=== PATIENT | male | born 1960 | race Two or more races ===

== ENCOUNTER 2016-04-16 23:32 | Emergency (ER) | payer MEDICAID ==
[~2016-04-16] VITALS: Ht 172.7 cm; Wt 72.6 kg
[~2016-04-16 23:32] MED LIST: ALBUTEROL SULF8.5 GM INH; ALBUTEROL2.5 MG/3 M HHN; ALBUTEROL2.5 MG/3 M INH; ATORVASTATIN CA10 MG ORAL; AZITHROMYCIN250 MG ORAL; IPRATROPIU0.2 MG/1 M HHN; PREDNISONE20 MG ORAL; SPIRIVA18 MCG INH; SYMBICORT 16010.2 G1 IH
[2016-04-16 23:50] VITALS: BP 122/64
[2016-04-17] MEDS ORDERED: PredniSONE 20mg tab ORAL ONE
[2016-04-17] MEDS ORDERED: Ipratropium 0.02% Inh Soln 2.5ml UD HHN ONE
[2016-04-17] MEDS ORDERED: Albuterol ud Inhalation HHN ONE ×2 (01:00)
[2016-04-17] MEDS ORDERED: AZITHROMYCIN250 MG ORAL (01:05)
[2016-04-17] MEDS ORDERED: DUONEB 0.5-3(2.53 ML HHN (01:05)
[2016-04-17] MEDS ORDERED: PREDNISONE20 MG ORAL (01:05)
[2016-04-17] MEDS ORDERED: ALBUTEROL SULF8.5 GM INH (01:05)
--- NOTE | 2016-04-17 01:06 | Emergency Room Report ---
History of Present Illness General Chief Complaint: Dyspnea/Respdistress Source: Patient Present Illness HPI This is a 55-year-old male with a history of COPD. His been having a cough congestion for last 4 days. Increasing wheezing. He had a breathing treatment at [facility] yesterday. Also started on prednisone. He is out of his medication now. Denies any fever or chills. Denies any nausea vomiting. Is congested. Coughing is nonproductive in nature. Better with his inhaler. Worse with exertion. Allergies: Coded Allergies: SULFAMETHOXAZOLE (Verified Allergy, Mild, 11/08/15) Patient History Past Medical History: see triage record, old chart reviewed, COPD Past Surgical History: other Pertinent Family History: none Social History: Reports: smoking - Quit 10 days ago Immunizations: other Reviewed Nursing Documentation: PMH: Agreed, PSxH: Agreed Nursing Documentation-PMH Hx Asthma: Yes Hx COPD: Yes Hx Gastrointestinal Problems: No - Proteinuria Review of Systems Eye: Denies: blurred vision, eye pain ENT: Denies: ear pain, nose congestion, throat swelling Respiratory: Reports: cough, shortness of breath, wheezing Cardiovascular: Denies: chest pain, palpitations Gastrointestinal: Denies: abdominal pain, diarrhea, nausea, vomiting Musculoskeletal: Denies: back pain, joint pain Skin: Denies: rash Neurological: Denies: headache, numbness Endocrine: Denies: increased thirst, increased urine Hematologic/Lymphatic: Denies: easy bruising All Other Systems: negative except mentioned in HPI Physical Exam Vital Signs Date Time Temp Pulse Resp B/P Pulse Ox O2 Delivery O2 Flow Rate FiO2 04/16/16 23:45 97.9 92 16 136/80 96 Room Air vitals normal Sp02 EP Interpretation: reviewed, normal General Appearance: well appearing, no apparent distress, alert Head: normocephalic, atraumatic Eyes: bilateral eye EOMI, bilateral eye PERRL ENT: hearing grossly normal, normal pharynx Neck: full range of motion, supple, no meningismus Respiratory: chest non-tender, normal breath sounds, wheezing Cardiovascular #1: regular rate, rhythm, no murmur Gastrointestinal: normal bowel sounds, non tender, no mass, no organomegaly, no bruit, non-distended Musculoskeletal: back normal, gait/station normal, normal range of motion Neurologic: alert, oriented x3 Psychiatric: mood/affect normal Skin: warm/dry Medical Decision Making Diagnostic Impression: Primary Impression: COPD exacerbation ER Course Patient with COPD exacerbation. Better after treatment. We'll continue with steroid. He only took 40 mg a day. I will prescribe antibiotics I told patient to hold her for 3 days. If not better going from it. No evidence of meningitis, pneumonia, ACS, PE, CHF to name a few. Last Vital Signs Date Time Temp Pulse Resp B/P Pulse Ox O2 Delivery O2 Flow Rate FiO2 04/17/16 00:18 91 16 99 Room Air 04/16/16 23:45 97.9 136/80 Status: improved Disposition: HOME, SELF-CARE Condition: Stable Scripts Ipratropium/Albuterol Sulfate (DuoNeb 0.5-3(2.5)mg/3ml) 3 Ml Ampul.neb 3 ML HHN Q4HR, #25 EA Prov: KANDACE NGUYEN M.D. 04/17/16 Azithromycin* (ZITHROMAX*) 250 Mg Tablet 250 MG ORAL DAILY, #6 TAB 0 Refills Take two tablets by mouth today, then take one tablet by mouth daily for four days Prov: KANDACE NGUYEN M.D. 04/17/16 Prednisone* (PREDNISONE*) 20 Mg Tablet 60 MG ORAL DAILY, #9 TAB Prov: KANDACE NGUYEN M.D. 04/17/16 Albuterol Sulfate* (ALBUTEROL SULFATE MDI*) 8.5 Gm Hfa.aer.ad 2 PUFF INH Q4H Y for cough/wheezing, #1 EA 0 Refills Prov: KANDACE NGUYEN M.D. 04/17/16 Referrals: NON PHYSICIAN (PCP) Patient Instructions: Chronic Obstructive Pulmonary Disease Exacerbation Additional Instructions: Continue to abstain from smoking. Followup with your DrMeseret in 7 days. Return if worse. Hold off antibiotics prescription for 3 days. Fill it if not better. KANDACE NGUYEN M.D. Apr 17, 2016 01:06
[2016-04-17 01:25] VITALS: BP 125/68
[2016-04-17] MEDS ORDERED: PredniSONE 20mg tab ORAL SCH (09:00)
== END 2016-04-17 01:30 | disposition home or self-care (01) ==
LOC: EMR 23:59
DX: J44.1 Chronic obstructive pulmonary disease with (acute) exacerbation (principal); J45.909 Unspecified asthma, uncomplicated; Z88.2 Allergy status to sulfonamides; Z87.891 Personal history of nicotine dependence
CPT/HCPCS: 94640; 94664; 99284